=== PATIENT | female | born 1960 | race Caucasian/White ===

== ENCOUNTER 2020-03-22 09:19 | Day surgery (SDC) | payer BC ==
[~2020-03-22] VITALS: Ht 152.4 cm; Wt 67.3 kg
[2020-03-22 11:30] VITALS: BP 119/67; PULSE 75; TEMP 97.4
--- NOTE | 2020-03-22 11:30 | NUR ---
Patient arrives back from [facility] alert, denies pain or nausea. Patient monitor applied, vitals stable. Patient tolerating water well in PACU. Patient given crackers and soda. Patient resting comfortably.
[2020-03-22 11:45] VITALS: BP 117/65; PULSE 92
[2020-03-22] MEDS ORDERED: SYNTHROID0.1 MG/TAB PO (11:53)
[2020-03-22] MEDS ORDERED: PLAQUENIL 200M200 MG PO (11:53)
[2020-03-22] MEDS ORDERED: NORCO 325 MG-51 TAB PO (11:54)
[2020-03-22] MEDS ORDERED: QSYMIA 11.25 MG1 CER PO (11:56)
[2020-03-22 12:00] VITALS: BP 119/68; PULSE 74
--- NOTE | 2020-03-22 12:00 | NUR ---
Patient reports she is feeling well, denies pain or nausea. Vitals stable. Will prepare dismissal instructions.
--- NOTE | 2020-03-22 12:25 | NUR ---
Dismissal instructions gone over with patient. Patient voices understanding and all questions answered.
--- NOTE | 2020-03-22 12:30 | NUR ---
Patient up to restroom at this time and is able to urinate without any difficulties. Patient does reports a small amount of blood in urine, denies clots.
--- NOTE | 2020-03-22 12:40 | NUR ---
Patient discharged to private vehicle at patient enterance via wheelchair without any complications. Patient and spouse leave thanking staff for services.
[2020-03-22 12:44] VITALS: BP 120/61; PULSE 72; TEMP 98.2
== END 2020-03-22 12:40 | disposition home or self-care (01) ==
LOC: SDCO 09:19
DX: N20.1 Calculus of ureter (principal); F17.210 Nicotine dependence, cigarettes, uncomplicated; Z85.828 Personal history of other malignant neoplasm of skin; E89.0 Postprocedural hypothyroidism; Z79.899 Other long term (current) drug therapy; Z88.5 Allergy status to narcotic agent; Z88.0 Allergy status to penicillin
CPT/HCPCS: C1769; C2617; J0690; J1100; J1885; J2405; J2704; J3010; J7120; Q9967